=== PATIENT | female | born 1950 | race Caucasian/White ===

== ENCOUNTER → 2017-02-26 | Outpatient (CLI) | payer OTHER | LOC: FIMAGING 13:16 | PROVIDERS: ATTEND Physician Assistant | DX: Z12.31 Encounter for screening mammogram for malignant neoplasm of breast (principal); Z80.3 Family history of malignant neoplasm of breast | CPT/HCPCS: G0202 ==

== ENCOUNTER 2017-03-05 22:19 | Emergency (ER) | payer OTHER ==
[2017-03-05 22:36] VITALS: RESP 16; TEMP 98.2; O2SAT 95
--- NOTE | 2017-03-06 00:03 | EDPHY ---
H & P Stated Complaint: confusion s/p med change Time Seen by Provider: 03/05/17 23:23 HPI/ROS: HPI The patient presents with generalized confusion, difficulty concentrating, feeling phos the for the last 10 days. This has occurred in the setting of starting cyclobenzaprine and trazodone 10 days ago. She was prescribed these by her primary care PA for neck pain and insomnia. She is taking both of them at night and sometimes takes a 2nd dose of cyclobenzaprine at 3:00 a.m.. She feels that her neck pain is the same. She is not sleeping much better. She has never taken these medications before. She does not have a headache, weakness of her arms or legs, difficulty walking. She is also concerned because her blood pressure has been somewhat elevated lately, when it was last checked it was 160/90. However here, her blood pressure is normal.. REVIEW OF SYSTEMS Constitutional: No fever, no chills. Eyes: No discharge. ENT: No sore throat. Cardiovascular: No chest pain, no palpitations. Respiratory: No cough, no shortness of breath. Gastrointestinal: No abdominal pain, no vomiting. Genitourinary: No hematuria. Musculoskeletal: No back pain. Skin: No rashes. Neurological: No headache. PMHx: Insomnia, seasonal allergies Soc Hx: Lives at home with her PHYSICAL General Appearance: Alert, no distress Eyes: Pupils equal and round no pallor or injection ENT, Mouth: Mucous membranes moist Respiratory: There are no retractions, lungs are clear to auscultation Cardiovascular: Regular rate and rhythm Gastrointestinal: Abdomen is soft and non-tender, no masses, bowel sounds normal Neurological: A&O, moves all extremities Skin: Warm and dry, no rashes Musculoskeletal: Neck is supple non tender Extremities: symmetrical, full range of motion Psychiatric: Patient is oriented X 3, there is no agitation Source: Patient Exam Limitations: No limitations - Personal History Current Tetanus/Diphtheria Vaccine: Yes Current Tetanus Diphtheria and Acellular Pertussis (TDAP): Yes - Medical/Surgical History Hx Asthma: No Hx Chronic Respiratory Disease: No Hx Diabetes: No Hx Cardiac Disease: No Hx Renal Disease: No Hx Cirrhosis: No Hx Alcoholism: Yes Hx HIV/AIDS: No Hx Splenectomy or Spleen Trauma: No Other PMH: insomnia, seasonal allergies, cervical biopsy benign, L4-L5 stenosis, - Social History Smoking Status: Never smoked Constitutional: Initial Vital Signs Temperature (C) 36.8 C 03/05/17 22:30 Heart Rate 91 03/05/17 22:30 Respiratory Rate 16 03/05/17 22:30 Blood Pressure 142/91 H 03/05/17 22:30 O2 Sat (%) 95 03/05/17 22:30 O2 Delivery Mode Room Air Allergies/Adverse Reactions: metronidazole [From Flagyl] Allergy (Unknown, Verified 10/23/09 14:02) Metronidazole HCl [From Flagyl] Allergy (Unknown, Verified 10/23/09 14:02) Home Medications: Medication Instructions Recorded Wellbutrin 10/23/09 Cyclobenzaprine 03/05/17 traZODone 03/05/17 Medical Decision Making Differential Diagnosis: This is a 66-year-old female with a 10 day history of confusion, difficulty concentrating and holding thoughts in her head. This is in the setting of starting cyclobenzaprine and trazodone for neck pain and sleep respectively. I feel this is likely medication side-effect. I have considered CVA, however the patient has a nonfocal neurologic exam. I have considered dementia, however this would be quite rapid onset. I have instructed her to stop taking the cyclobenzaprine and instead use ibuprofen and Tylenol. If she continues to feel confused, then she can stop taking the trazodone as well. And her confusion continues after that, then she can follow up with her regular doctor. She is in agreement with this plan. Departure - Departure Disposition: Home, Routine, Self-Care Clinical Impression: Medication side effect Qualifiers: Encounter type: initial encounter Qualified Code(s): T88.7XXA - Unspecified adverse effect of drug or medicament, initial encounter Condition: Good Instructions: Altered Mental Status (ED) Additional Instructions: Please stop taking the cyclobenzaprine. If you do this for 2-3 days in you continues to feel foggy, you should then stop the trazodone. Otherwise you can continue taking the trazodone. If you are looking for medication for insomnia, other choices could be melatonin 10 mg before bed with Unisom (doxylamine) 10mg before bed. For your neck pain, you can take ibuprofen 400 mg with acetaminophen 650 mg every 6 hours as needed for pain. Please monitor your blood pressure at home, a normal blood pressure should be less than 130/90. If your noticing that your blood pressure is higher than this , you need to see your primary care doctor. Referrals: Tess Larios PA [Primary Care Provider] - As per Instructions
[2017-03-06 00:13] VITALS: BP 136/86; PULSE 82
== END 2017-03-06 00:13 | disposition home or self-care (01) ==
DX: R41.0 Disorientation, unspecified (principal); T48.1X5A Adverse effect of skeletal muscle relaxants [neuromuscular blocking agents], initial encounter

== ENCOUNTER → 2018-02-28 | Outpatient (CLI) | payer OTHER | LOC: FIMAGING 13:44 | PROVIDERS: ATTEND Physician Assistant | DX: Z12.31 Encounter for screening mammogram for malignant neoplasm of breast (principal); Z80.3 Family history of malignant neoplasm of breast ==

== ENCOUNTER → 2018-05-07 | Outpatient (CLI) | payer OTHER | LOC: FIMAGING 12:48 | PROVIDERS: ATTEND Physician Assistant | DX: M19.071 Primary osteoarthritis, right ankle and foot (principal) ==